=== PATIENT | female | born 1980 | race Caucasian/White ===

== ENCOUNTER 2017-05-01 07:46 | Outpatient (CLI) ==
[2016-03-20 06:14] VITALS: BMI 37.5
--- NOTE | 2017-05-01 08:59 | DI ---
EXAM: Double contrast esophagram. History: Dysphagia. Technique: Patient was given gas crystals. Patient was then given oral barium and multiple spot herbie ms of the esophagus and gastroesophageal junction were obtained in various projections. Findings: The course and caliber of the esophagus are within normal limits. No mucosal lesions or f illing defects identified. The gastroesophageal junction is normal. No hiatal hernia. No gastroeso phageal reflux was observed. Impression: Normal double contrast esophagram
== END 2017-05-01 07:47 | disposition home or self-care (01) ==
LOC: RAD 07:46
PROVIDERS: ATTEND Nurse Practitioner Family
DX: R13.10 Dysphagia, unspecified (principal)

== ENCOUNTER 2017-06-19 16:32 | Emergency (ER) ==
[2017-06-19 16:35] VITALS: BP 136/76; TEMP 101.5; BMI 38.9
--- NOTE | 2017-06-19 16:42 | ED.PDOC ---
General ED Provider: Dr. JONAH NATARAJAN JR Chief Complaint: Sore Throat Stated Complaint: patient c/o bodyaches and sore throat. states she has run a fever. [ End ]sore throat since awakening 101.5 102 16 96% 136/76 8/10 Time Seen by Physician: 16:40 Mode of Arrival: Walk-In Information Source: Patient Exam Limitations: No limitations Primary Care Provider: BARRON LEONG Nursing and Triage Documentation Reviewed and Agree: No Reviewed sepsis parameters & appropriate labs ordered?: Yes System Inflammatory Response Syndrome: Temp 101F or Greater Sepsis Protocol: For patient's 13 years and over: Temp is 96.8 and below OR 101 and greater Pulse >90 BPM Resp >20/minute Acutely Altered Mental Status Are patient's symptoms suggestive of a new infection, such as: -Pneumonia -Skin, Soft Tissue -Endocarditis -UTI -Bone, Joint Infection -Implantable Device -Acute Abdominal Infection -Wound Infection -Meningitis -Blood Stream Catheter Infection -Unknown System Inflammatory Response Syndrome: Not Applicable Review of Systems - Review Of Systems Constitutional: Reports: Chills, Malaise Eyes: Reports: No symptoms Ears, Nose, Mouth, Throat: Reports: Throat pain. Denies: Ear pain Respiratory: Reports: Cough Cardiac: Reports: No symptoms GI: Reports: No symptoms : Reports: No symptoms Musculoskeletal: Reports: No symptoms Skin: Reports: No symptoms Neurological: Reports: Headache Endocrine: Reports: No symptoms Hematologic/Lymphatic: Reports: No symptoms All Other Systems: Other Past Medical History - Past Medical History Previously Healthy: Yes Endocrine: Reports: None Cardiovascular: Reports: Hypertension Respiratory: Reports: None Hematological: Reports: None Gastrointestinal: Reports: None Genitourinary: Reports: Kidney stones Neuro/Psych: Reports: None Musculoskeletal: Reports: None Cancer: Reports: None Last Menstrual Period: 05/31/17 - Surgical History General Surgical History: Reports: Tubal ligation, (X1), Tonsillectomy , Other (BILATERAL OCULAR MUSCLE REPAIR), Unknown - Family History Family History: Reports: Unknown - Social History Smoking Status: Current every day smoker, Light tobacco smoker Hx Substance Use: No Alcohol Screening: None Physical Exam - Physical Exam Appearance: Ill-appearing Ill-appearing: Moderate Pain Distress: Moderate Eyes: CIPRIANO, EOMI, Conjunctiva clear ENT: Nose normal, Oropharynx normal, TMs Occluded, Erythema (EACS WITHOUT TENDERNESS) Neck: Supple (NO LAD) Respiratory: Airway patent, Breath sounds clear, Breath sounds equal, Respirations nonlabored Cardiovascular: RRR, Pulses normal, No rub, No murmur GI/: Soft, Nontender, No masses, Bowel sounds normal, No Organomegaly Musculoskeletal: Normal strength, ROM intact, No edema, No calf tenderness Skin: Warm, Dry, Normal color Neurological: Sensation intact, Motor intact, Reflexes intact, Cranial nerves intact, Alert, Oriented Psychiatric: Affect appropriate, Mood appropriate Critical Care Note - Critical Care Note Total Time (mins): 0 Course - Course Vital Signs: Temp Pulse Resp BP Pulse Ox 06/19/17 16:33 101.5 F H 102 H 16 136/76 96 Departure - Departure Time of Disposition: 17:18 Disposition: HOME SELF-CARE Discharge Problem: Sore throat symptom, Flu-like symptoms Otitis externa Qualifiers: Otitis externa type: diffuse Chronicity: acute Laterality: bilateral Qualified Code(s): H60.313 - Diffuse otitis externa, bilateral Instructions: Otitis Externa (ED), Pharyngitis (ED) Condition: Good Pt referred to PMD for follow-up: Yes Additional Instructions: ZITHROMAX ANTIBIOTIC MAY BEGIN PREDNISONE FOR CONGESTION RECOMMEND LIQUIDS (SUCH SWEET OIL OR SWIMEAR TO CLEAN EARS) INCREASE FLUIDS Prescriptions: Azithromycin [Zithromax] 250 mg PO DIRECTED #6 tablet Prednisone 20 mg PO DIRECTED #50 tablet Allergies/Adverse Reactions: Allergies Penicillins Adverse Reaction (Verified 06/19/17 16:36) Hives Home Medications: Ambulatory Orders Azithromycin [Zithromax] 250 mg PO DIRECTED #6 tablet 06/19/17 Prednisone 20 mg PO DIRECTED #50 tablet 06/19/17
[2017-06-19 17:13] LABS: FLU INTERNAL QC INTERNAL QC VALID; MOLECULAR FLU A NEGATIVE (NEGATIVE); MOLECULAR FLU B NEGATIVE (NEGATIVE)
== END 2017-06-19 17:29 | disposition home or self-care (01) ==
LOC: ED 16:32
DX: J02.9 Acute pharyngitis, unspecified (principal); H60.313 Diffuse otitis externa, bilateral; R68.89 Other general symptoms and signs; F17.210 Nicotine dependence, cigarettes, uncomplicated
CPT/HCPCS: 87651; 87804; 87880; 99283

== ENCOUNTER 2018-11-10 17:04 | Emergency (ER) ==
[2018-11-10 17:13] VITALS: BP 143/86; TEMP 98.3; BMI 43.6
--- NOTE | 2018-11-10 18:51 | ED.PDOC ---
General ED Provider: Dr. YING SILVER Chief Complaint: Sore Throat Stated Complaint: sore throat Time Seen by Physician: 17:17 Mode of Arrival: Walk-In Information Source: Patient Exam Limitations: No limitations Primary Care Provider: [facility] Nursing and Triage Documentation Reviewed and Agree: Yes Does patient meet sepsis criteria?: No If yes, has appropriate treatment been initiated?: No System Inflammatory Response Syndrome: Not Applicable Sepsis Protocol: For patient's 13 years and over: Temp is 96.8 and below OR 101 and greater Pulse >90 BPM Resp >20/minute Acutely Altered Mental Status Are patient's symptoms suggestive of a new infection, such as: -Pneumonia -Skin, Soft Tissue -Endocarditis -UTI -Bone, Joint Infection -Implantable Device -Acute Abdominal Infection -Wound Infection -Meningitis -Blood Stream Catheter Infection -Unknown EENT Complaint Exam - Throat Complaint/Exam Symptoms Are: Still present Timimg: Intermittent Initial Severity: Mild Current Severity: Mild Aggravating: Reports: Eating Alleviating: Reports: None Associated Signs and Symptoms: Reports: Cough, Nasal congestion. Denies: Fever , Dysphagia, Drooling, Foreign body sensation, Chills, Wheezing, Hoarseness, Sinus discomfort, Difficulty breathing, Lethargy, Irritability, Decreased activity, Vomiting, Diarrhea, Decreased hearing, Ear drainage Related History: Reports: Similar Episode Uvula Midline: Yes Tori-tonsillar Fluctuence: No Scarlatinaform Rash Present: No Lesions: Absent: Lip, Gums, Tongue, Buccal Mucosa, Pharynx Exanthem: Absent: Lip, Gums, Tongue, Buccal Mucosa, Pharynx Vesicles: Absent: Lip, Gums, Tongue, Buccal Mucosa, Pharynx Stridor Present: Yes Sinus Tenderness Present: No Tonsillar Hypertrophy Present: No Tonsillar Exudate Present: No Adenopathy Present: No Splenomegaly Present: No Differential Diagnoses: Pharyngitis Review of Systems - Review Of Systems Constitutional: Reports: No symptoms Eyes: Reports: No symptoms Ears, Nose, Mouth, Throat: Reports: Throat pain Respiratory: Reports: No symptoms Cardiac: Reports: No symptoms GI: Reports: No symptoms : Reports: No symptoms Musculoskeletal: Reports: No symptoms Skin: Reports: No symptoms Neurological: Reports: No symptoms Endocrine: Reports: No symptoms Hematologic/Lymphatic: Reports: No symptoms All Other Systems: Reviewed and Negative Past Medical History - Past Medical History Previously Healthy: Yes Endocrine: Reports: None Cardiovascular: Reports: Hypertension Respiratory: Reports: None Hematological: Reports: None Gastrointestinal: Reports: None Genitourinary: Reports: Kidney stones Neuro/Psych: Reports: None Musculoskeletal: Reports: None Cancer: Reports: None Last Menstrual Period: last week of september Other Pertinent Past Medical History: TONSILLS,BLIATERAL MUSCLE REPAIR TO EYES,C -SECTION X 1, - Surgical History General Surgical History: Reports: Tubal ligation, (X1), Tonsillectomy , Other (BILATERAL OCULAR MUSCLE REPAIR), Unknown - Family History Family History: Reports: Unknown - Social History Smoking Status: Current every day smoker, Light tobacco smoker Hx Substance Use: No Alcohol Screening: None Physical Exam - Physical Exam Appearance: Well-appearing, No pain distress, Well-nourished Eyes: CIPRIANO, EOMI, Conjunctiva clear ENT: Ears normal, Nose normal, Erythema Respiratory: Airway patent, Breath sounds clear, Breath sounds equal, Respirations nonlabored Cardiovascular: RRR, Pulses normal, No rub, No murmur GI/: Soft, Nontender, No masses, Bowel sounds normal, No Organomegaly Musculoskeletal: Normal strength, ROM intact, No edema, No calf tenderness Skin: Warm, Dry, Normal color Neurological: Sensation intact, Motor intact, Reflexes intact, Cranial nerves intact, Alert, Oriented Psychiatric: Affect appropriate, Mood appropriate Critical Care Note - Critical Care Note Total Time (mins): 0 Course - Course Vital Signs: Temp Pulse Resp BP Pulse Ox 11/10/18 17:11 98.3 F 76 20 143/86 H 96 Departure - Departure Time of Disposition: 18:50 Disposition: HOME SELF-CARE Discharge Problem: Sore throat symptom Pharyngitis Qualifiers: Pharyngitis/tonsillitis etiology: unspecified etiology Qualified Code(s): J02.9 - Acute pharyngitis, unspecified Instructions: Pharyngitis (ED) Condition: Good Pt referred to PMD for follow-up: Yes IPMP verified?: No Additional Instructions: Please call your Family Physician as soon as possible to schedule a follow-up appointment. Prescriptions: Azithromycin [Zithromax] 500 mg PO DIRECTED #6 tablet Allergies/Adverse Reactions: Allergies Penicillins Adverse Reaction (Verified 11/10/18 17:13) Hives Home Medications: Ambulatory Orders Azithromycin [Zithromax] 500 mg PO DIRECTED #6 tablet 11/10/18
== END 2018-11-10 19:05 | disposition home or self-care (01) ==
LOC: ED 17:04
DX: J02.9 Acute pharyngitis, unspecified (principal)
CPT/HCPCS: 99282